=== PATIENT | female | born 2005 | race Caucasian/White ===

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

== ENCOUNTER → 2025-05-04 13:05 | Outpatient (CLI) | payer BC, SELFPAY | PROVIDERS: PCP Naturopath; Referring Provider Naturopath; Visit Provider Chiropractor | DX: R30.0 Dysuria (principal) | CPT/HCPCS: 87086 ==